=== PATIENT | female | born 1970 | race Caucasian/White ===

== ENCOUNTER 2024-10-30 12:42 | Outpatient (CLI) | payer OTHER ==
[~2024-10-30 12:42] MED LIST: LEVSIN/SL0.125 MG SL; PEPCID40 MG PO
== END 2024-10-30 12:46 | disposition home or self-care (01) ==
LOC: SONOGRAMA 12:42
PROVIDERS: ATTEND Pathology Anatomic Pathology
DX: D34 Benign neoplasm of thyroid gland (principal); E07.89 Other specified disorders of thyroid; E04.1 Nontoxic single thyroid nodule